=== PATIENT | female | born 1935 | race Caucasian/White ===

== ENCOUNTER 2017-11-20 11:56 | Day surgery (SDC) | payer MEDICARE, SELFPAY ==
--- NOTE | 2017-11-20 | PATH_ITS ---
[facility] Accession Number: [id number] . 01 Material submitted: . PART A: PROXIMAL RIGHT COLON POLYP PART B: HEPATIC FLEXTURE POLYPS X3 PART C: COLON POLYP AT 70CM . 02 Diagnosis: A. Biopsy Proximal Right Colon Polyp: Two polypoid-shaped fragments of normal appearing colon mucosa consistent with mucosal polypoid redundancy. Negative for evidence of neoplasm on multiple sections. . B. Biopsy Hepatic Flexure Polyps: Tubular adenoma involving two biopsy fragments. Single polypoid-shaped fragment of normal appearing colon mucosa consistent with mucosal polypoid redundancy. . C. Biopsy Colon Polyp at 70 cm: Single fragment of normal appearing colon mucosa consistent with mucosal polypoid redundancy. Negative for evidence of neoplasm on multiple sections. [facility]/11/21/2017 . 02 Electronically signed: . Pacheco Marie MD, Pathologist NPI- [id number] . 01 Gross description: . Received three formalin-filled containers, each labeled with the patient's name: . A. In a container labeled proximal RT colon polyp, the specimen consists of two 0.3-0.4 cm portions of tissue, entirely submitted in cassette A. B. In a container labeled hepatic flexure polyps x3, the specimen consists of three 0.3-0.4 cm portions of tissue, entirely submitted in cassette B. C. In a container labeled colon polyp at 70 cm, the specimen consists of a 0.9 x 0.2 x 0.1 cm portion of tissue, entirely submitted in cassette C. ([id number]) /FRR . 02 Pathologist provided ICD-10: D12.3 . 02 CPT . 409321, [id number], [id number] Performed at: [address], [place] [id number] MD Anjum Gill MD Phone: [phone] Performed at: 02 [facility] [address] [place] [id number] MD Fabio Van MD Phone: [phone]
[2017-11-20 12:27] VITALS: BP 112/67; PULSE 71; RESP 15; TEMP 36.3; O2SAT 96; BMI 29.1
[2017-11-20] MEDS: MIDAZOLAM 5 MG/5 ML VIAL IV (14:00)
[2017-11-20] MEDS: fentaNYL 250 MCG/5 ML INJ IV (14:05)
[2017-11-20 14:17] VITALS: BP 106/58; PULSE 78; RESP 16; TEMP 36.4; O2SAT 98
--- NOTE | 2017-11-20 14:22 | PM.HP.1 ---
History of Present Illness Date Patient Seen: 11/20/17 Time Patient Seen: 14:22 Chief complaint: 92043 SCREENING COLONOSCOPY Narrative: Very pleasant 81-year-old lady who presents for screening colonoscopy. She has personal history of multiple colon polyps reports that her last colonoscopy was about 6 years ago. She denies any new problems or symptoms related to the function of her GI tract. Patient History Family & Social History Family History: Reviewed 11/20/17 by Romelia Patel MD Social History: household members spouse Meds Home Medications Medication Instructions Recorded Confirmed Type Aspir-81 81 mg PO DAILY 11/20/17 11/20/17 History chlorthalidone 12.5 mg PO DAILY 11/20/17 11/20/17 History losartan 25 mg PO DAILY 11/20/17 11/20/17 History metformin 500 mg PO BID 11/20/17 11/20/17 History Allergies Allergy/AdvReac Type Severity Reaction Status Date / Time Mgamlcq-Rpb-Oov Reductase AdvReac Intermediate Weakness Verified 11/20/17 12:55 Inhibitor Review of Systems Review of Systems All systems reviewed & are unremarkable except as noted in HPI and below Exam Vital Signs (past 8 hours): - 11/20/17 12:27 11/20/17 14:17 Temperature 97.3 F L 97.6 F Pulse Rate 71 78 Respiratory Rate 15 16 Blood Pressure 112/67 106/58 L Pulse Oximetry 96 98 Oxygen Delivery Method Room Air Narrative Exam Narrative: Very pleasant lady who appears much younger than her stated age HEENT: Normocephalic and atraumatic, pupils equal round reactive to light accommodation with anicteric sclera Lungs: Clear to auscultation bilaterally Heart: Regular rate and rhythm Abdomen: Soft, nontender, active bowel sounds, well-healed midline surgical abdominal incision without palpable defects Extremities: Warm well perfused Assessment & Plan Plan: Assessment/Plan Narrative: Very pleasant 81-year-old lady with history of multiple colon polyps here for screening colonoscopy. We discussed the risks and benefits of the procedure the patient expressed desire to completed today.
--- NOTE | 2017-11-20 14:24 | PM.OP.1 ---
Operative Date/Time/Diagnoses Date of procedure: 11/20/17 Time of procedure: 14:24 Pre-op diagnosis: Personal history of colon polyps Screening Post-op diagnosis: same Procedure & Clinicians Procedure: Colonoscopy to the cecum with polypectomy x5 Same procedure as scheduled: Yes Indications: Last colonoscopy 6 years ago Surgeon: Romelia Patel Click Yes if Unassisted: Yes Anesthesia Type: Sedation (Versed 4 mg; fentanyl 150 mcg) Operative Notes Findings: 1. Adequate prep 2. Sessile polyp-2-3 mm-in the proximal right colon 3. Three polyps at the hepatic flexure. All polyps were within 5 cm of each other. The largest was 5 mm and semi pedunculated. The other 2 were 2-3 mm. 4. Sessile polyp at 70 cm from the anal verge. 4-5 mm 5. Scattered diverticula with the most significant disease limited to the sigmoid region. Multiple large pockets but no false passages 6. Grade 1-2 internal hemorrhoids Closure Type: non-primary Procedure in detail: After obtaining informed consent, the patient was brought to the GI suite and placed in the left lateral decubitus position on the examination table. After placement of appropriate monitors, the patient was given incremental doses of Versed and Fentanyl until an appropriate level of sedation was achieved. A time out was held per [facility]AP protocol. A digital rectal examination was performed and did not reveal any masses or obstructing lesions. The colonoscope was gently passed into the patient's anus and the entire colon navigated to the level of the cecum with minimal difficulty. Once in the cecum, the scope was withdrawn being sure to go before and beyond all mucosal folds and prominences and get an excellent examination. The findings are noted above. At the level of the rectal vault, the scope was retroflexed and the internal anal canal was examined. The scope was straightened and air aspirated from the colon. The instrument was removed from the patient's body and the procedure was concluded. The patient was allowed to awaken from sedation without difficulty and taken to the post-anesthesia care unit in good condition. Total sedation time 28 min Total withdrawal time 14 min Condition: stable Disposition: PACU Plan for aftercare: 1. Discharge to home 2. Plan for next colonoscopy in 5 years or as clinically indicated 3. We will contact you with pathology results and any other recommendations.
[2017-11-20 14:25] VITALS: BP 110/60; PULSE 76; RESP 16; O2SAT 99
== END 2017-11-20 14:44 | disposition home or self-care (01) ==
PROVIDERS: PCP Internal Medicine; Visit Provider Surgery
PROC: 0DJD8ZZ Inspection of Lower Intestinal Tract, Via Natural or Artificial Opening Endoscopic (ICD-10-PCS; CPT 45378; principal; 2017-11-20 13:00)
DX: Z86.010 Personal history of colon polyps (principal); K57.30 Diverticulosis of large intestine without perforation or abscess without bleeding; K64.0 First degree hemorrhoids; D12.3 Benign neoplasm of transverse colon; D12.2 Benign neoplasm of ascending colon
CPT/HCPCS: 45380; 88305; 99152; 99153; J2250; J3010